=== PATIENT | male | born 1945 | race Caucasian/White ===

== ENCOUNTER 2023-04-05 23:40 | Emergency (ER) | payer MEDICARE, BC ==
[~2023-04-05] VITALS: Ht 182.9 cm; Wt 72.6 kg
[2023-04-06] MEDS ORDERED: DONE10TA44 PO (00:07)
[2023-04-06] MEDS ORDERED: FLUD0.1T PO (00:07)
[2023-04-06] MEDS ORDERED: MODA100T29 PO (00:07)
[2023-04-06] MEDS ORDERED: AZEL23SP2 BNOSTRILS (00:07)
[2023-04-06] MEDS ORDERED: NAPR-1196 PO (00:07)
[2023-04-06] MEDS ORDERED: SILO8CAP2 PO (00:07)
[2023-04-06] MEDS ORDERED: CARB1TAB21 PO (00:07)
[2023-04-06] MEDS ORDERED: gemtesa PO (00:07)
[2023-04-06] MEDS ORDERED: ASPI81TA31 PO (00:07)
[2023-04-06] MEDS ORDERED: VENL37.510 PO (00:07)
[2023-04-06] MEDS ORDERED: CHOL500062 PO (00:07)
[2023-04-06] MEDS ORDERED: ROSU20TA32 PO (00:07)
[2023-04-06] MEDS ORDERED: CLONIDINE HCL 0.1 MG TABLET ONE (00:41)
[2023-04-06 00:42] LABS: CALCIUM 8.9 mg/dL (8.5-10.1); CARBON DIOXIDE 25 mmol/L (21-32); CHLORIDE 106 mmol/L (98-107); CREATININE 1.2 mg/dL (0.6-1.3); GLUCOSE 99 mg/dL (74-106); SODIUM SERUM 139 mmol/L (136-145); UREA NITROGEN, BLOOD 29 mg/dL (7-18)
[2023-04-06] MEDS: CLONIDINE HCL 0.1 MG TABLET PO ONE (00:45)
[2023-04-06 00:55] LABS: ALANINE AMINOTRANSFERASE 10 U/L (16-63); ALKALINE PHOSPHATASE 56 U/L (50-136); ASPARTATE AMINOTRANSFERASE 16 U/L (15-37); BILIRUBIN,TOTAL 0.6 mg/dL (0.2-1.0); NT-PRO BNP 196 pg/mL (0-125); TOTAL PROTEIN, SERUM 6.9 g/dL (6.4-8.2)
[2023-04-06 01:07] LABS: BASOPHILS % (AUTO) 0.6 % (0.0-2.0); EOSINOPHILS # (AUTO) 0.4 K/uL (0.0-0.7); EOSINOPHILS % (AUTO) 6.5 % (0.0-7.0); HEMATOCRIT 33.1 % (36.7-47.1); HEMOGLOBIN 11.5 g/dL (12.5-16.3); LYMPHOCYTES # (AUTO) 1.7 K/uL (0.8-4.8); LYMPHOCYTES % (AUTO) 27.6 % (20.5-51.5); MEAN CORPUSCULAR HEMOGLOBIN 32.5 uug (23.8-33.4); MEAN CORPUSCULAR HGB CONC 35 g/dL (32.5-36.3); MEAN CORPUSCULAR VOLUME 93.5 fL (73.0-96.2); MONOCYTES # (AUTO) 0.5 K/uL (0.1-1.30); MONOCYTES % (AUTO) 8.9 % (0.0-11.0); NEUTROPHILS # (AUTO) 3.4 K/uL (1.8-8.9); NEUTROPHILS % (AUTO) 56.4 % (38.5-71.5); PLATELET COUNT (AUTO) 121 K/uL (152-348); RED BLOOD CELL COUNT(AUTO) 3.54 MIL/uL (4.06-5.63)
[2023-04-06] MEDS: IV NS 1000 ML 1,000 ML IV ONE (01:07)
[2023-04-06 01:08] LABS: DIFFERENTIAL COMMENT 1
[2023-04-06] MEDS ORDERED: hydrALAZINE HCL 20 MG/1 ML VIAL ONE (02:27)
[2023-04-06] MEDS: hydrALAZINE HCL 20 MG/1 ML VIAL IV ONE (02:32)
[2023-04-06 05:16] VITALS: BP 155/76; TEMP 98.5; O2SAT 99
== END 2023-04-06 05:17 ==
LOC: ER 23:48
DX: R19.7 Diarrhea, unspecified (principal); Z79.82 Long term (current) use of aspirin; Z79.899 Other long term (current) drug therapy; Z88.1 Allergy status to other antibiotic agents
CPT/HCPCS: 99284; 96374; 96361; 80053; 83880; 85025; 87040; 84484; 36415; 93005; 83605; J0360; J7040; A4606; A4663